=== PATIENT | female | born 1995 | race African-American/Black ===

== ENCOUNTER 2018-12-23 00:35 | Emergency (ER) | payer SELFPAY ==
[~2018-12-23] VITALS: Ht 160 cm; Wt 52.3 kg
[~2018-12-23 00:35] MED LIST: NO HOME MEDICATIONS
[2018-12-23 00:44] VITALS: BP 133/80; TEMP 97
[2018-12-23] MEDS ORDERED: NEXPLANON68 MG ID (00:53)
[2018-12-23 00:56] LABS: BASO % 0.3 % (0.0-2.0); EOS % 0.2 % (0-4.0); GRAN # 6.8 (1.4-6.5); GRAN % 73.5 % (42.2-75.2); HEMATOCRIT 37.6 % (37.0-47.0); HEMOGLOBIN 12.6 g/dl (12.5-16.0); MEAN CELL VOLUME 86 fl (80.0-100.0); MEAN CORPUSCULAR HEMOGLOBIN 29 pg (27.0-31.0); MEAN CORPUSCULAR HGB CONC 34 g/dl (33.0-37.0); MEAN PLATELET VOLUME 11.7 fl (7.4-10.4); MONO # 0.3 (0.1-0.6); MONO % 3.7 % (1.7-9.3); PLATELET COUNT 215 K/mm3 (130-400); RED BLOOD COUNT 4.35 M/mm3 (4.10-5.30); REDCELL DISTRIBUTION WIDTH-CV 13.4 % (11.5-14.5)
[2018-12-23 01:07] LABS: ALANINE AMINOTRANSFERASE 9 U/L (9-52); ALBUMIN 4.6 gm/dL (3.5-5.0); ALKALINE PHOSPHATASE 74 U/L (50-136); ANION GAP 13 mmol/L (7-16); AST,SGOT 29 U/L (15-37); BILIRUBIN,TOTAL 0.4 mg/dL (0.0-1.0); BLOOD UREA NITROGEN 16 mg/dL (7-17); CALCIUM 9.8 mg/dL (8.4-10.2); CARBON DIOXIDE 20 mmol/L (22-30); CHLORIDE 108 mmol/L (98-107); CREATININE, serum 0.82 (0.52-1.25); GLUCOSE 134 mg/dL (74-106); POTASSIUM 3.7 mmol/L (3.4-5.0); SODIUM 141 mmol/L (137-145); TOTAL PROTEIN 8.1 gm/dL (6.4-8.2)
[2018-12-23 01:10] LABS: C-REACTIVE PROTEIN < 0.5 mg/dL (0.0-0.9)
[2018-12-23 02:35] LABS: COLLECTION METHOD CLEAN CATCH
[2018-12-23 02:50] LABS: MUCOUS Present /lpf; PH 7 (5-8); URINE APPEARANCE Hazy; URINE BACTERIA Rare /hpf; URINE BILIRUBIN Negative (NEGATIVE); URINE BLOOD Negative (NEGATIVE); URINE COLOR Yellow; URINE GLUCOSE Negative (NEGATIVE); URINE KETONE 1+ (NEGATIVE); URINE LEUKOCYTE ESTERASE Negative (NEGATIVE); URINE NITRATE Negative (NEGATIVE); URINE PROTEIN(semi-quant) 1+ (NEGATIVE); URINE RBC 0-2 /hpf; URINE UROBILINOGEN Negative (NEGATIVE)
[2018-12-23 03:04] VITALS: PULSE 77
== END 2018-12-23 03:04 | disposition home or self-care (01) ==
LOC: COL.ER 00:35
PROVIDERS: Nurse Practitioner
DX: R51 Headache (principal); F17.210 Nicotine dependence, cigarettes, uncomplicated; Z88.2 Allergy status to sulfonamides
CPT/HCPCS: J1200; J1885; J2765; J7030

== ENCOUNTER 2019-04-06 22:05 | Emergency (ER) | payer MEDICAID ==
[~2019-04-06] VITALS: Ht 160 cm; Wt 54.1 kg
[~2019-04-06 22:05] MED LIST changes: +NEXPLANON68 MG ID
[2019-04-06 22:12] VITALS: TEMP 99.3
[2019-04-06 23:42] LABS: BASO % 0.2 % (0.0-2.0); GRAN # 6.7 (1.4-6.5); GRAN % 82.1 % (42.2-75.2); HEMOGLOBIN 12.3 g/dl (12.5-16.0); LYMPH % 12.7 % (20.0-51.0); MEAN CELL VOLUME 89 fl (80.0-100.0); MEAN CORPUSCULAR HEMOGLOBIN 30 pg (27.0-31.0); MEAN CORPUSCULAR HGB CONC 34 g/dl (33.0-37.0); MEAN PLATELET VOLUME 11.9 fl (7.4-10.4); MONO # 0.4 (0.1-0.6); MONO % 4.8 % (1.7-9.3); PLATELET COUNT 204 K/mm3 (130-400); RED BLOOD COUNT 4.04 M/mm3 (4.10-5.30); REDCELL DISTRIBUTION WIDTH-CV 13.2 % (11.5-14.5)
[2019-04-06 23:53] LABS: ALBUMIN 4.3 gm/dL (3.5-5.0); BILIRUBIN,TOTAL 0.8 mg/dL (0.0-1.0); C-REACTIVE PROTEIN 0.8 mg/dL (0.0-0.9); CALCIUM 9.3 mg/dL (8.4-10.2); CREATININE, serum 0.82 (0.52-1.25); POTASSIUM 3.7 mmol/L (3.4-5.0); TOTAL PROTEIN 7.3 gm/dL (6.4-8.2)
[2019-04-07 00:19] LABS: COLLECTION METHOD CLEAN CATCH
[2019-04-07 00:27] LABS: MUCOUS Present /lpf; PH 9 (5-8); SQUAMOUS EPITHELIAL 0-2 /hpf; URINE APPEARANCE Clear; URINE BACTERIA Rare /hpf; URINE BILIRUBIN Negative (NEGATIVE); URINE BLOOD Negative (NEGATIVE); URINE COLOR Yellow; URINE GLUCOSE Negative (NEGATIVE); URINE KETONE 1+ (NEGATIVE); URINE LEUKOCYTE ESTERASE Negative (NEGATIVE); URINE NITRATE Negative (NEGATIVE); URINE PROTEIN(semi-quant) 1+ (NEGATIVE); URINE RBC 0-2 /hpf; URINE UROBILINOGEN Negative (NEGATIVE)
[2019-04-07] MEDS ORDERED: PHENERGAN 25 TA25 MG PO (02:14)
[2019-04-07 02:23] VITALS: BP 125/60; PULSE 85
== END 2019-04-07 02:35 | disposition home or self-care (01) ==
LOC: COL.ER 22:05
PROVIDERS: Emergency Medicine
DX: R19.7 Diarrhea, unspecified (principal); R11.10 Vomiting, unspecified; F17.210 Nicotine dependence, cigarettes, uncomplicated
CPT/HCPCS: J2550; J7030; Q9967

== ENCOUNTER 2019-08-07 23:23 | Emergency (ER) | payer MEDICAID ==
[~2019-08-07] VITALS: Ht 160 cm; Wt 52.3 kg
[~2019-08-07 23:23] MED LIST changes: +PHENERGAN 25 TA25 MG PO
[2019-08-08] MEDS ORDERED: ANTIVERT 25MG25 MG PO (00:56)
[2019-08-08 01:40] VITALS: BP 116/82; PULSE 88; TEMP 98.9
== END 2019-08-08 01:40 | disposition home or self-care (01) ==
LOC: COL.ER 23:23
DX: G43.909 Migraine, unspecified, not intractable, without status migrainosus (principal)
CPT/HCPCS: J3010

== ENCOUNTER 2019-10-23 10:41 | Emergency (ER) | payer MEDICAID ==
[~2019-10-23] VITALS: Ht 160 cm; Wt 54.5 kg
[~2019-10-23 10:41] MED LIST changes: +ANTIVERT 25MG25 MG PO
[2019-10-23 10:54] VITALS: TEMP 98.2
[2019-10-23 12:11] LABS: COLLECTION METHOD CLEAN CATCH
[2019-10-23 12:17] LABS: BASO % 0.3 % (0.0-2.0); EOS % 0.2 % (0-4.0); GRAN # 8.8 (1.4-6.5); GRAN % 84.2 % (42.2-75.2); HEMOGLOBIN 11.3 g/dl (12.5-16.0); LYMPH # 1.2 (1.2-3.4); LYMPH % 11.3 % (20.0-51.0); MEAN CELL VOLUME 88 fl (80.0-100.0); MEAN CORPUSCULAR HEMOGLOBIN 29 pg (27.0-31.0); MEAN CORPUSCULAR HGB CONC 33 g/dl (33.0-37.0); MEAN PLATELET VOLUME 12.4 fl (7.4-10.4); MONO # 0.4 (0.1-0.6); MONO % 3.7 % (1.7-9.3); PLATELET COUNT 215 K/mm3 (130-400); RED BLOOD COUNT 3.95 M/mm3 (4.10-5.30); REDCELL DISTRIBUTION WIDTH-CV 13.9 % (11.5-14.5)
[2019-10-23 12:18] LABS: HEMATOCRIT 34.7 % (37.0-47.0)
[2019-10-23 12:19] LABS: MUCOUS Present /lpf; PH 8 (5-8); SQUAMOUS EPITHELIAL 0-2 /hpf; URINE APPEARANCE Clear; URINE BACTERIA None Seen /hpf; URINE BILIRUBIN Negative (NEGATIVE); URINE BLOOD Negative (NEGATIVE); URINE COLOR Yellow; URINE GLUCOSE Negative (NEGATIVE); URINE KETONE Negative (NEGATIVE); URINE LEUKOCYTE ESTERASE Negative (NEGATIVE); URINE NITRATE Negative (NEGATIVE); URINE PROTEIN(semi-quant) Negative (NEGATIVE); URINE RBC None Seen /hpf; URINE UROBILINOGEN Negative (NEGATIVE)
[2019-10-23 12:24] LABS: ALBUMIN 4.4 gm/dL (3.5-5.0); BILIRUBIN,TOTAL 0.4 mg/dL (0.0-1.0); CALCIUM 9.4 mg/dL (8.4-10.2); CREATININE, serum 0.7 (0.52-1.25); POTASSIUM 4.3 mmol/L (3.4-5.0); TOTAL PROTEIN 7.7 gm/dL (6.4-8.2)
[2019-10-23] MEDS ORDERED: ZOFRAN 4MG T4 MG/TAB PO (13:12)
[2019-10-23 13:35] VITALS: BP 101/78; PULSE 80
== END 2019-10-23 13:39 | disposition home or self-care (01) ==
LOC: COL.ER 10:41
PROVIDERS: Nurse Practitioner Primary Care
DX: A08.4 Viral intestinal infection, unspecified (principal); F17.210 Nicotine dependence, cigarettes, uncomplicated
CPT/HCPCS: J2550; J7030

== ENCOUNTER 2019-12-30 18:27 | Emergency (ER) | payer MEDICAID ==
[~2019-12-30 18:27] MED LIST changes: +ZOFRAN 4MG T4 MG/TAB PO
[2019-12-30 18:34] VITALS: TEMP 98.2
[2019-12-30 19:44] VITALS: BP 100/68; PULSE 85
--- NOTE | 2019-12-31 09:08 | NUR ---
ALISSA received an ED consult at 1950 for the patient. The patient had answered yes to a couple safety questions concerning her ex-boyfriend. ALISSA attemped to contact the patient at the phone number she provided to the RN ([phone]). ALISSA left a [email or web address]
== END 2019-12-30 19:45 | disposition home or self-care (01) ==
LOC: COL.ER 18:27
DX: G43.909 Migraine, unspecified, not intractable, without status migrainosus (principal); F17.210 Nicotine dependence, cigarettes, uncomplicated
CPT/HCPCS: J0780; J1885

== ENCOUNTER 2020-02-26 20:38 | Emergency (ER) | payer MEDICAID ==
[~2020-02-26] VITALS: Ht 160 cm; Wt 54.5 kg
[2020-02-26 21:06] VITALS: BP 126/78; TEMP 98.3
[2020-02-26 21:47] VITALS: PULSE 71
== END 2020-02-26 21:47 | disposition home or self-care (01) ==
LOC: COL.ER 20:38
DX: S30.814A Abrasion of vagina and vulva, initial encounter (principal); G43.909 Migraine, unspecified, not intractable, without status migrainosus; F17.210 Nicotine dependence, cigarettes, uncomplicated; X58.XXXA Exposure to other specified factors, initial encounter

== ENCOUNTER 2020-03-07 12:52 | Emergency (ER) | payer MEDICAID ==
[~2020-03-07] VITALS: Ht 160 cm; Wt 54.1 kg
[2020-03-07 13:12] VITALS: BP 104/69; TEMP 98.4
[2020-03-07 13:39] LABS: COLLECTION METHOD CLEAN CATCH
[2020-03-07 13:52] LABS: MUCOUS Present /lpf; PH 6 (5-8); URINE APPEARANCE Hazy; URINE BACTERIA Rare /hpf; URINE BILIRUBIN Negative (NEGATIVE); URINE BLOOD Negative (NEGATIVE); URINE COLOR Yellow; URINE GLUCOSE Negative (NEGATIVE); URINE KETONE Negative (NEGATIVE); URINE LEUKOCYTE ESTERASE 2+ (NEGATIVE); URINE NITRATE Negative (NEGATIVE); URINE PROTEIN(semi-quant) Negative (NEGATIVE); URINE UROBILINOGEN >=4.0 mg/dL (NEGATIVE)
[2020-03-07] MEDS ORDERED: CLEOCIN VAGINA100 MG VG (15:53)
[2020-03-07] MEDS ORDERED: DIFLUCAN150 MG PO (15:53)
[2020-03-07 16:10] VITALS: PULSE 68
== END 2020-03-07 16:27 | disposition home or self-care (01) ==
LOC: COL.ER 12:52
PROVIDERS: Emergency Medicine
DX: N76.0 Acute vaginitis (principal); B37.9 Candidiasis, unspecified; F17.210 Nicotine dependence, cigarettes, uncomplicated; Z88.2 Allergy status to sulfonamides; Z88.1 Allergy status to other antibiotic agents; Z79.3 Long term (current) use of hormonal contraceptives

== ENCOUNTER 2020-03-31 18:42 | Emergency (ER) | payer MEDICAID ==
[~2020-03-31] VITALS: Ht 160 cm; Wt 52.3 kg
[~2020-03-31 18:42] MED LIST changes: +CLEOCIN VAGINA100 MG VG; +DIFLUCAN150 MG PO
[2020-03-31 19:33] VITALS: TEMP 97.9
[2020-03-31 22:30] VITALS: BP 118/69; PULSE 85
[2020-03-31] MEDS ORDERED: AMOXICILLIN 50500 MG PO (22:30)
== END 2020-03-31 22:30 | disposition home or self-care (01) ==
LOC: COL.ER 18:42
DX: K08.89 Other specified disorders of teeth and supporting structures (principal); F17.210 Nicotine dependence, cigarettes, uncomplicated; Z88.2 Allergy status to sulfonamides
CPT/HCPCS: J1885

== ENCOUNTER 2020-06-24 11:17 | Emergency (ER) | payer MEDICAID ==
[~2020-06-24] VITALS: Ht 157.5 cm; Wt 52.3 kg
[~2020-06-24 11:17] MED LIST changes: +AMOXICILLIN 50500 MG PO
[2020-06-24 11:22] VITALS: TEMP 98.9
[2020-06-24 12:15] LABS: BASO % 0.5 % (0.0-2.0); EOS % 1.1 % (0-4.0); GRAN % 55.4 % (42.2-75.2); LYMPH # 1.3 (1.2-3.4); LYMPH % 35.6 % (20.0-51.0); MEAN CELL VOLUME 86 fl (80.0-100.0); MEAN CORPUSCULAR HGB CONC 32 g/dl (33.0-37.0); MEAN PLATELET VOLUME 11.9 fl (7.4-10.4); MONO # 0.3 (0.1-0.6); MONO % 7.1 % (1.7-9.3); PLATELET COUNT 225 K/mm3 (130-400); REDCELL DISTRIBUTION WIDTH-CV 14.6 % (11.5-14.5)
[2020-06-24 12:20] LABS: HEMATOCRIT 29.1 % (37.0-47.0); HEMOGLOBIN 9.4 g/dl (12.5-16.0); MEAN CORPUSCULAR HEMOGLOBIN 28 pg (27.0-31.0)
[2020-06-24 12:26] LABS: ALBUMIN 3.8 gm/dL (3.5-5.0); BILIRUBIN,TOTAL 0.4 mg/dL (0.0-1.0); CALCIUM 8.4 mg/dL (8.4-10.2); CREATININE, serum 0.74 (0.52-1.25); TOTAL PROTEIN 6.7 gm/dL (6.4-8.2)
[2020-06-24] MEDS ORDERED: TRAVEL SICKNESS25 MG PO (12:53)
[2020-06-24] MEDS ORDERED: ZOFRAN ODT4 MG PO (12:53)
[2020-06-24] MEDS ORDERED: FIORICET 325 MG1 TA1 PO (12:53)
[2020-06-24 13:05] VITALS: BP 108/64; PULSE 73
== END 2020-06-24 13:05 | disposition home or self-care (01) ==
LOC: COL.ER 11:17
PROVIDERS: Physician Assistant
DX: G43.809 Other migraine, not intractable, without status migrainosus (principal); D64.9 Anemia, unspecified; F17.200 Nicotine dependence, unspecified, uncomplicated; Z32.02 Encounter for pregnancy test, result negative; Z88.2 Allergy status to sulfonamides; Z79.2 Long term (current) use of antibiotics
CPT/HCPCS: J1885; J2550; J7030

== ENCOUNTER 2020-10-02 08:01 | Emergency (ER) | payer MEDICAID ==
[~2020-10-02] VITALS: Ht 160 cm; Wt 54.5 kg
[~2020-10-02 08:01] MED LIST changes: +FIORICET 325 MG1 TA1 PO; +TRAVEL SICKNESS25 MG PO; +ZOFRAN ODT4 MG PO
[2020-10-02 08:08] VITALS: TEMP 97.5
[2020-10-02 08:18] LABS: BASO % 0.6 % (0.0-2.0); GRAN # 4.2 (1.4-6.5); GRAN % 63.1 % (42.2-75.2); HEMOGLOBIN 10.7 g/dl (12.5-16.0); LYMPH % 30.3 % (20.0-51.0); MEAN CELL VOLUME 81 fl (80.0-100.0); MEAN CORPUSCULAR HEMOGLOBIN 26 pg (27.0-31.0); MEAN CORPUSCULAR HGB CONC 32 g/dl (33.0-37.0); MEAN PLATELET VOLUME 11.4 fl (7.4-10.4); MONO # 0.4 (0.1-0.6); MONO % 5.7 % (1.7-9.3); PLATELET COUNT 262 K/mm3 (130-400); RED BLOOD COUNT 4.08 M/mm3 (4.10-5.30); REDCELL DISTRIBUTION WIDTH-CV 14.5 % (11.5-14.5)
[2020-10-02] MEDS ORDERED: TOPAMAX 25MG25 M1 PO (08:23)
[2020-10-02] MEDS ORDERED: ERGOCALCIFER50000 IU PO (08:24)
[2020-10-02] MEDS ORDERED: IMITREX 25MG TA25 MG PO (08:24)
[2020-10-02 08:28] LABS: COLLECTION METHOD CLEAN CATCH
[2020-10-02 08:31] LABS: ALANINE AMINOTRANSFERASE 24 U/L (4-34); ALBUMIN 4.5 gm/dL (3.5-5.0); ALCOHOL(ethanol),MEDICAL 34 mg/dL; ALKALINE PHOSPHATASE 61 U/L (50-136); ANION GAP 13 mmol/L (7-16); AST,SGOT 39 U/L (15-37); BILIRUBIN,TOTAL 0.5 mg/dL (0.0-1.0); BLOOD UREA NITROGEN 12 mg/dL (7-17); CALCIUM 9.5 mg/dL (8.4-10.2); CARBON DIOXIDE 19 mmol/L (22-30); CHLORIDE 108 mmol/L (98-107); CREATININE, serum 0.71 (0.52-1.25); GLUCOSE 110 mg/dL (74-106); LIPASE 31 U/L (23-300); POTASSIUM 4.2 mmol/L (3.4-5.0); SODIUM 139 mmol/L (137-145)
[2020-10-02 08:32] LABS: C-REACTIVE PROTEIN < 0.5 mg/dL (0.0-0.9)
[2020-10-02 08:35] LABS: PH 7 (5-8); URINE APPEARANCE Hazy; URINE BACTERIA Rare /hpf; URINE BILIRUBIN Negative (NEGATIVE); URINE BLOOD Negative (NEGATIVE); URINE COLOR Yellow; URINE GLUCOSE Negative (NEGATIVE); URINE KETONE Negative (NEGATIVE); URINE LEUKOCYTE ESTERASE Negative (NEGATIVE); URINE NITRATE Negative (NEGATIVE); URINE PROTEIN(semi-quant) Negative (NEGATIVE); URINE RBC 0-2 /hpf; URINE UROBILINOGEN Negative (NEGATIVE)
[2020-10-02] MEDS ORDERED: ZOFRAN ODT4 MG PO (08:49)
[2020-10-02 11:00] VITALS: BP 112/70; PULSE 55
== END 2020-10-02 11:05 | disposition home or self-care (01) ==
LOC: COL.ER 08:01
PROVIDERS: Family Medicine
DX: E86.0 Dehydration (principal); D64.9 Anemia, unspecified; F10.129 Alcohol abuse with intoxication, unspecified; G43.909 Migraine, unspecified, not intractable, without status migrainosus; F17.200 Nicotine dependence, unspecified, uncomplicated; Z88.2 Allergy status to sulfonamides; Y90.1 Blood alcohol level of 20-39 mg/100 ml
CPT/HCPCS: C9113; J2405; J2550; J7040; J7120

== ENCOUNTER 2021-05-09 19:13 | Emergency (ER) | payer MEDICAID ==
[~2021-05-09] VITALS: Ht 160 cm; Wt 53.2 kg
[~2021-05-09 19:13] MED LIST changes: +ERGOCALCIFER50000 IU PO; +IMITREX 25MG TA25 MG PO; +TOPAMAX 25MG25 M1 PO
[2021-05-09 19:38] VITALS: TEMP 98.5
[2021-05-09 20:02] LABS: BASO # 0.1 K/mm3 (0.0-0.2); BASO % 0.7 % (0.0-2.0); EOS % 0.4 % (0-4.0); GRAN # 5.1 K/mm3 (1.4-6.5); GRAN % 61.8 % (42.2-75.2); HEMATOCRIT 31.8 % (37.0-47.0); HEMOGLOBIN 10.1 g/dl (12.5-16.0); LYMPH # 2.6 K/mm3 (1.2-3.4); MEAN CELL VOLUME 78 fl (80.0-100.0); MEAN CORPUSCULAR HEMOGLOBIN 25 pg (27.0-31.0); MEAN CORPUSCULAR HGB CONC 32 g/dl (33.0-37.0); MEAN PLATELET VOLUME 12.2 fl (7.4-10.4); MONO # 0.4 K/mm3 (0.1-0.6); PLATELET COUNT 278 K/mm3 (130-400); RED BLOOD COUNT 4.09 M/mm3 (4.10-5.30); REDCELL DISTRIBUTION WIDTH-CV 15.3 % (11.5-14.5)
[2021-05-09 20:17] LABS: ALBUMIN 4.2 gm/dL (3.5-5.0); BILIRUBIN,TOTAL 0.3 mg/dL (0.2-1.2); CALCIUM 9.3 mg/dL (8.4-10.2); CREATININE, serum 1.02 mg/dL (0.57-1.11); POTASSIUM 3.7 mmol/L (3.5-4.5); TOTAL PROTEIN 7.4 gm/dL (6.2-8.1)
[2021-05-09 20:25] LABS: COLLECTION METHOD CLEAN CATCH
[2021-05-09 20:34] LABS: MUCOUS Present /lpf; PH 7 (5-8); URINE APPEARANCE Clear; URINE BACTERIA None Seen /hpf; URINE BILIRUBIN Negative (NEGATIVE); URINE BLOOD Negative (NEGATIVE); URINE COLOR Yellow; URINE GLUCOSE Negative (NEGATIVE); URINE KETONE Negative (NEGATIVE); URINE LEUKOCYTE ESTERASE Negative (NEGATIVE); URINE NITRATE Negative (NEGATIVE); URINE PROTEIN(semi-quant) Negative (NEGATIVE); URINE RBC None Seen /hpf; URINE UROBILINOGEN Negative (NEGATIVE)
[2021-05-09] MEDS ORDERED: FLAGYL500 MG PO ×2 (21:58)
[2021-05-09] MEDS ORDERED: DOXYCYCLINE 10100 MG PO (21:58)
[2021-05-09 22:17] VITALS: BP 118/80; PULSE 77
[2021-05-09] MEDS ORDERED: CLEOCIN HC150 MG/CAP PO (22:21)
[2021-05-09] MEDS ORDERED: DIFLUCAN150 MG PO (22:22)
== END 2021-05-09 22:20 | disposition home or self-care (01) ==
LOC: COL.ER 19:13
PROVIDERS: Emergency Medicine
DX: N73.8 Other specified female pelvic inflammatory diseases (principal); G43.909 Migraine, unspecified, not intractable, without status migrainosus; Z32.02 Encounter for pregnancy test, result negative; Z79.899 Other long term (current) drug therapy
CPT/HCPCS: J0696; J2270; J2405; J7030; Q9967

== ENCOUNTER 2021-06-18 21:13 | Emergency (ER) | payer MEDICAID ==
[~2021-06-18] VITALS: Ht 160 cm; Wt 51.8 kg
[~2021-06-18 21:13] MED LIST changes: +CLEOCIN HC150 MG/CAP PO; +DOXYCYCLINE 10100 MG PO; +FLAGYL500 MG PO
[2021-06-18 21:24] VITALS: TEMP 98.2
[2021-06-18 23:08] VITALS: BP 127/86; PULSE 18
== END 2021-06-18 23:08 | disposition home or self-care (01) ==
LOC: COL.ER 21:13
PROVIDERS: Emergency Medicine
DX: R51.9 Headache, unspecified (principal); Z86.69 Personal history of other diseases of the nervous system and sense organs; Z79.899 Other long term (current) drug therapy
CPT/HCPCS: J1200; J2765; J7030

== ENCOUNTER 2021-07-24 11:33 | Emergency (ER) | payer MEDICAID ==
[~2021-07-24] VITALS: Ht 160 cm; Wt 51.8 kg
[2021-07-24 13:10] VITALS: BP 111/74; TEMP 98.3
[2021-07-24 14:34] VITALS: PULSE 82
== END 2021-07-24 14:34 | disposition home or self-care (01) ==
LOC: COL.ER 11:33
DX: U07.1 COVID-19 (principal); F17.210 Nicotine dependence, cigarettes, uncomplicated

== ENCOUNTER 2021-09-27 11:55 | Emergency (ER) | payer MEDICAID ==
[~2021-09-27] VITALS: Ht 160 cm; Wt 64.5 kg
[2021-09-27 12:29] LABS: COLLECTION METHOD CLEAN CATCH
[2021-09-27 12:37] LABS: MUCOUS Present (NOT PRESENT); PH 5 (5-8); SQUAMOUS EPITHELIAL 0-2 /hpf (0-10); URINE APPEARANCE Clear (CLEAR/HAZY); URINE BACTERIA None Seen /hpf (NONE SEEN); URINE BILIRUBIN Negative (NEGATIVE); URINE BLOOD Negative (NEGATIVE); URINE COLOR Yellow (YELLOW); URINE GLUCOSE Negative (NEGATIVE); URINE KETONE Negative (NEGATIVE); URINE LEUKOCYTE ESTERASE Negative (NEGATIVE); URINE NITRATE Negative (NEGATIVE); URINE PROTEIN(semi-quant) Negative (NEGATIVE); URINE RBC 0-2 /hpf (0-2); URINE UROBILINOGEN Negative (NEGATIVE)
[2021-09-27] MEDS ORDERED: DOXYCYCLINE 10100 MG PO (14:50)
[2021-09-27 15:01] VITALS: BP 110/72; PULSE 74; TEMP 99.2
== END 2021-09-27 15:03 | disposition home or self-care (01) ==
LOC: COL.ER 11:55
PROVIDERS: Nurse Practitioner Primary Care
DX: A74.9 Chlamydial infection, unspecified (principal); Z88.1 Allergy status to other antibiotic agents; Z88.2 Allergy status to sulfonamides

== ENCOUNTER 2022-02-02 21:10 | Emergency (ER) | payer MEDICAID ==
[~2022-02-02] VITALS: Ht 160 cm; Wt 48.6 kg
[2022-02-02 21:12] VITALS: TEMP 98.5
[2022-02-02] MEDS ORDERED: ZOFRAN ODT4 MG PO (22:35)
[2022-02-02 22:50] VITALS: BP 112/78; PULSE 76
== END 2022-02-02 22:50 | disposition home or self-care (01) ==
LOC: COL.ER 21:10
DX: R51.9 Headache, unspecified (principal); F17.210 Nicotine dependence, cigarettes, uncomplicated; Z86.69 Personal history of other diseases of the nervous system and sense organs; Z28.310 Unvaccinated for COVID-19
CPT/HCPCS: J0780; J1200; J1885; J7030

== ENCOUNTER 2022-03-05 18:55 | Emergency (ER) | payer MEDICAID ==
[~2022-03-05] VITALS: Ht 160 cm; Wt 47.3 kg
[2022-03-05 20:55] LABS: STREP SCREEN NEGATIVE
[2022-03-05 21:17] VITALS: BP 106/66; PULSE 79; TEMP 99.5
== END 2022-03-05 21:27 | disposition home or self-care (01) ==
LOC: COL.ER 18:55
PROVIDERS: Nurse Practitioner Family
DX: J02.9 Acute pharyngitis, unspecified (principal); F17.200 Nicotine dependence, unspecified, uncomplicated; Z20.822 Contact with and (suspected) exposure to COVID-19; Z28.310 Unvaccinated for COVID-19

== ENCOUNTER 2022-08-07 18:53 | Emergency (ER) | payer MEDICAID ==
[~2022-08-07 18:53] MED LIST changes: +GOOD SENSE SLEE25 M1 PO; +METROGEL-VAGINA0.75% VG; +VITAMIN B-625 MG PO
[2022-08-07 19:05] VITALS: TEMP 98.2
[2022-08-07 19:46] LABS: BASO # 0.1 K/mm3 (0.0-0.2); BASO % 0.5 % (0.0-2.0); EOS % 0.4 % (0.0-4.0); GRAN # 6.8 K/mm3 (1.4-6.5); GRAN % 70.6 % (42.2-75.2); HEMOGLOBIN 10.3 g/dl (12.5-16.0); LYMPH # 2.2 K/mm3 (1.2-3.4); LYMPH % 22.6 % (20.0-51.0); MEAN CELL VOLUME 75 fl (80.0-100.0); MEAN CORPUSCULAR HEMOGLOBIN 25 pg (27-31); MEAN CORPUSCULAR HGB CONC 34 g/dl (33.0-37.0); MEAN PLATELET VOLUME 11.1 fl (7.4-10.4); MONO # 0.5 K/mm3 (0.1-0.6); MONO % 5.6 % (1.7-9.3); PLATELET COUNT 236 K/mm3 (130-400); RED BLOOD COUNT 4.12 M/mm3 (4.10-5.30); REDCELL DISTRIBUTION WIDTH-CV 20.9 % (11.5-14.5)
[2022-08-07 19:47] LABS: HEMATOCRIT 30.7 % (37.0-47.0)
[2022-08-07 21:12] VITALS: BP 118/71; PULSE 73
== END 2022-08-07 21:23 | disposition home or self-care (01) ==
LOC: COL.ER 18:53
PROVIDERS: Personal Emergency Response Attendant
DX: O20.0 Threatened abortion (principal); O99.331 Smoking (tobacco) complicating pregnancy, first trimester; F17.200 Nicotine dependence, unspecified, uncomplicated; Z28.311 Partially vaccinated for COVID-19; Z3A.13 13 weeks gestation of pregnancy

== ENCOUNTER 2023-04-22 08:43 | Emergency (ER) | payer MEDICAID ==
[~2023-04-22] VITALS: Ht 152.4 cm; Wt 54.5 kg
[~2023-04-22 08:43] MED LIST changes: +ATARAX50 MG PO; +IBU600 MG PO; +PRENATAL TABLET PO; +PROZAC 20MG20 MG PO; +TYLENOL 500MG500 MG PO
[2023-04-22 08:59] VITALS: TEMP 97.9
[2023-04-22 09:19] LABS: COLLECTION METHOD CLEAN CATCH
[2023-04-22 09:24] LABS: BASO # 0.1 K/mm3 (0.0-0.2); BASO % 0.7 % (0.0-2.0); GRAN # 6.6 K/mm3 (1.4-6.5); GRAN % 80.5 % (42.2-75.2); HEMATOCRIT 38.1 % (37.0-47.0); HEMOGLOBIN 13.1 g/dl (12.5-16.0); LYMPH # 1.2 K/mm3 (1.2-3.4); LYMPH % 14.6 % (20.0-51.0); MEAN CELL VOLUME 89 fl (80.0-100.0); MEAN CORPUSCULAR HEMOGLOBIN 31 pg (27-31); MEAN CORPUSCULAR HGB CONC 34 g/dl (33.0-37.0); MONO # 0.3 K/mm3 (0.1-0.6); PLATELET COUNT 228 K/mm3 (130-400); RED BLOOD COUNT 4.27 M/mm3 (4.10-5.30)
[2023-04-22 09:50] LABS: URINE APPEARANCE Clear (CLEAR/HAZY); URINE COLOR Yellow (YELLOW); URINE GLUCOSE Negative (NEGATIVE); URINE PROTEIN(semi-quant) 1+ (NEGATIVE)
[2023-04-22 09:51] LABS: SQUAMOUS EPITHELIAL 0-2 /hpf (0-10); URINE BACTERIA None Seen /hpf (NONE SEEN); URINE BLOOD TRACE-LYSED (NEGATIVE); URINE KETONE TRACE (NEGATIVE); URINE NITRATE Negative (NEGATIVE); URINE RBC 0-2 /hpf (0-2)
[2023-04-22 09:58] LABS: ALBUMIN 4.5 gm/dL (3.5-5.0); BILIRUBIN,TOTAL 0.7 mg/dL (0.2-1.2); CALCIUM 10.2 mg/dL (8.4-10.2); CREATININE, serum 0.9 mg/dL (0.57-1.11); POTASSIUM 3.7 mmol/L (3.5-4.5); TOTAL PROTEIN 7.6 gm/dL (6.2-8.1)
[2023-04-22] MEDS ORDERED: ZOFRAN ODT4 MG PO (10:47)
[2023-04-22 11:01] VITALS: BP 123/83; PULSE 53
== END 2023-04-22 11:03 | disposition home or self-care (01) ==
LOC: COL.ER 08:43
PROVIDERS: Emergency Medicine
DX: R11.2 Nausea with vomiting, unspecified (principal); R51.9 Headache, unspecified
CPT/HCPCS: J1200; J1885; J2405; J7120